=== PATIENT | male | born 1980 | race Caucasian/White ===

== ENCOUNTER 2021-10-11 12:05 | Inpatient (IN) | payer MEDICARE, MEDICAID ==
[~2021-10-11] VITALS: Ht 172.7 cm; Wt 105.7 kg
[2021-10-11] VITALS (19 sets, daily range): BP systolic 68–143; BP diastolic 28–100
[2021-10-11] MEDS ORDERED: prilosec (12:13)
[2021-10-11] MEDS ORDERED: lasix (12:13)
[2021-10-11] MEDS ORDERED: oxycodone (12:13)
[2021-10-11] MEDS ORDERED: nifedipine (12:13)
[2021-10-11] MEDS ORDERED: albuterol (12:13)
[2021-10-11] MEDS ORDERED: [UNRECOGNIZED DRUG - OTHER] (12:13)
[2021-10-11] MEDS ORDERED: lorazepam (12:13)
[2021-10-11] MEDS ORDERED: keflex (12:13)
[2021-10-11] MEDS ORDERED: NALOXONE HCL 1 MG/ML 2ML VIAL ONE ×3 (12:34→12:40)
[2021-10-11] MEDS ORDERED: ACETAMINOPHEN 325MG TABLET PO STA (12:39)
[2021-10-11] MEDS ORDERED: NALOXONE HCL 1 MG/ML 2ML VIAL IV STA (12:44)
[2021-10-11] MEDS ORDERED: CEFTRIAXONE 1 G PREMIX 50 ML IV ONE (12:45)
[2021-10-11] MEDS ORDERED: NALOXONE HCL 1 MG/ML 2ML VIAL IV ONE ×2 (12:45)
[2021-10-11] MEDS ORDERED: VECURONIUM BROMIDE 10 MG/VIAL IV ONE (12:45)
[2021-10-11] MEDS ORDERED: PROPOFOL 10MG/ML 100ML 100 ML IV ONE (12:45)
[2021-10-11 13:07] LABS: HEMOGLOBIN. 7.3 g/dL (14.0-18.0); MEAN CORPUSCULAR HEMOGLOBIN 35.7 pg (28.0-32.0); MEAN CORPUSCULAR VOLUME 103.2 fL (80.0-94.0); MEAN PLATELET VOLUME 9.4 fl (7.4-10.4); PLATELET 59 x1000/uL (130-400); RED BLOOD CELL COUNT 2.03 mill/uL (4.7-6.1)
[2021-10-11 13:15] LABS: CHLORIDE 101 mEq/L (98-107)
[2021-10-11 13:20] LABS: ETHANOL BLOOD < 10 mg/dL
[2021-10-11 14:14] LABS: PLATELET ESTIMATE DECREASED
[2021-10-11 14:33] LABS: BG BASE EXCESS -1.2 mmol/L (-2.0-2.0); BG CARBOXYHEMOGLOBIN 0.5 % (0.5-1.5); BG DEOXYHEMOGLOBIN 0.7 % (0.0-5.0); BG FRACTION INSPIRED OXYGEN 80; BG METHEMOGLOBIN 0.7 % (0.0-1.5); BG OXYGEN SATURATION 99.3 % (92.0-98.5); BG OXYHEMOGLOBIN 98.1 % (94.0-97.0); BG PCO2 35.5 mmHg (35.0-45.0); BG PH 7.429 (7.350-7.450); BG PO2 303.3 mmHg (75.0-100.0); BG SAMPLE SITE RIGHT RADIAL; BG TOTAL HEMOGLOBIN 6.1 g/dL (12.0-18.0); BG VENT MODE VENT - AC
[2021-10-11] MEDS ORDERED: PANTOPRAZOLE SODIUM 40 MG/VIAL IV NR (15:00)
[2021-10-11] MEDS ORDERED: OCTREOTIDE 1,000 MCG in SODIUM CHLORIDE 0.9% 98 ML IV NR ×4 (15:15)
[2021-10-11] MEDS ORDERED: IOHEXOL-350 100 ML BOTTLE ONE (15:20)
[2021-10-11 16:27] LABS: INR 2.8; PROTHROMBIN TIME 27.4 sec (9.6-11.0)
[2021-10-11] MEDS ORDERED: VANCOMYCIN 2,000 MG in DEXT 5% WATER 500 ML IV SCH (18:00)
[2021-10-11 21:06] LABS: TOTAL IRON BINDING CAPACITY 137 ug/dL (250-450)
[2021-10-11 21:55] LABS: VITAMIN B12 SERUM > 2000.0 pg/mL (211-911)
[2021-10-11 22:36] LABS: FERRITIN 280 ng/mL (22-322)
[2021-10-11] MEDS: CEFEPIME 1,000 MG in DEXTROSE 5% WATER 50 ML IV SCH (22:37)
[2021-10-11] MEDS: PANTOPRAZOLE SODIUM 40 MG/VIAL IV SCH (22:40)
[2021-10-11] MEDS: NOREPINEPHRINE 32 MG in DEXT 5% WATER 218 ML IV PRN (22:41)
[2021-10-11] MEDS: PROPOFOL 10MG/ML 100ML 100 ML IV PRN (22:43)
[2021-10-12] VITALS (113 sets, daily range): BP systolic 63–146; BP diastolic 22–111
[2021-10-12 02:15] LABS: HEMOGLOBIN 6.5 g/dL (14.0-18.0)
[2021-10-12 02:16] LABS: HEMATOCRIT 19.5 % (42.0-52.0)
[2021-10-12] MEDS: PROPOFOL 10MG/ML 100ML 100 ML IV PRN ×4 (04:17→15:48)
[2021-10-12 08:45] LABS: HEMATOCRIT. 24.5 % (42.0-52.0); MEAN CORPUSCULAR VOLUME 98.7 fL (80.0-94.0); MEAN PLATELET VOLUME 9.1 fl (7.4-10.4); PLATELET 129 x1000/uL (130-400); RED BLOOD CELL COUNT 2.48 mill/uL (4.7-6.1); RED CELL DISTRIBUTION WIDTH 23.6 % (11.6-14.6)
[2021-10-12 08:50] LABS: BG BASE EXCESS -6.7 mmol/L (-2.0-2.0); BG CARBOXYHEMOGLOBIN 0.5 % (0.5-1.5); BG DEOXYHEMOGLOBIN 3.6 % (0.0-5.0); BG FRACTION INSPIRED OXYGEN 40; BG METHEMOGLOBIN 0.5 % (0.0-1.5); BG OXYGEN SATURATION 96.4 % (92.0-98.5); BG OXYHEMOGLOBIN 95.4 % (94.0-97.0); BG PCO2 22.5 mmHg (35.0-45.0); BG PH 7.469 (7.350-7.450); BG PO2 84.8 mmHg (75.0-100.0); BG SAMPLE SITE LEFT BRACHIAL; BG TOTAL HEMOGLOBIN 7.7 g/dL (12.0-18.0); BG VENT MODE VENT - AC
[2021-10-12 09:07] LABS: INR 2.9; PROTHROMBIN TIME 28.9 sec (9.6-11.0)
[2021-10-12] MEDS: PANTOPRAZOLE SODIUM 40 MG/VIAL IV SCH ×2 (09:28→20:38)
[2021-10-12] MEDS: CEFEPIME 1,000 MG in DEXTROSE 5% WATER 50 ML IV SCH (09:28)
[2021-10-12 09:44] LABS: VITAMIN B12 SERUM > 2000.0 pg/mL (211-911)
[2021-10-12] MEDS ORDERED: LACTULOSE 20G/30ML UDC PO PRN (10:15)
[2021-10-12] MEDS: LACTULOSE 20G/30ML UDC PO SCH ×3 (10:47→17:19)
[2021-10-12] MEDS: OCTREOTIDE 1,000 MCG in SODIUM CHLORIDE 0.9% 98 ML IV SCH (10:47)
[2021-10-12] MEDS: PHENYLEPHRINE 50 MG in DEXT 5% WATER 245 ML IV PRN ×2 (12:19→20:14)
[2021-10-12] MEDS: NOREPINEPHRINE 32 MG in DEXT 5% WATER 218 ML IV PRN ×3 (12:20→22:53)
[2021-10-12] MEDS ORDERED: IPRATROPIUM/ALBUTEROL 0.5-3(2.5)MG/3ML NEB HHN PRN (13:15)
[2021-10-12] MEDS ORDERED: PROPOFOL 10MG/ML 100ML 100 ML IV PRN (13:15)
[2021-10-12 13:22] LABS: NUCLEATED RED BLOOD CELLS 1 /100 WBC
[2021-10-12 13:23] LABS: PLATELET ESTIMATE SLIGHTLY DECREASED
[2021-10-12 15:34] LABS: HEMATOCRIT 22.6 % (42.0-52.0)
[2021-10-12 20:05] LABS: HEMATOCRIT 23.5 % (42.0-52.0); HEMOGLOBIN 7.1 g/dL (14.0-18.0)
[2021-10-12] MEDS: IPRATROPIUM/ALBUTEROL 0.5-3(2.5)MG/3ML NEB HHN SCH (20:14)
[2021-10-12] MEDS: DOXYCYCLINE 100 MG in DEXT 5% WATER 100 ML IV SCH (20:37)
[2021-10-12 21:01] LABS: HEPATITIS B SURFACE ANTIGEN NEGATIVE
[2021-10-13] VITALS (59 sets, daily range): BP systolic 39–157; BP diastolic 0–73
[2021-10-13] MEDS: IPRATROPIUM/ALBUTEROL 0.5-3(2.5)MG/3ML NEB HHN SCH ×4 (00:01→14:30)
[2021-10-13] MEDS: PHENYLEPHRINE 50 MG in DEXT 5% WATER 245 ML IV PRN ×4 (03:06→16:26)
[2021-10-13] MEDS: PROPOFOL 10MG/ML 100ML 100 ML IV PRN (03:07)
[2021-10-13 03:17] LABS: HEMATOCRIT 25.3 % (42.0-52.0); HEMOGLOBIN 7.7 g/dL (14.0-18.0)
[2021-10-13] MEDS: NOREPINEPHRINE 32 MG in DEXT 5% WATER 218 ML IV PRN ×3 (06:04→14:06)
[2021-10-13 06:55] LABS: HEMATOCRIT. 24.1 % (42.0-52.0); HEMOGLOBIN. 7.2 g/dL (14.0-18.0); MEAN CORPUSCULAR HEMOGLOBIN 31.2 pg (28.0-32.0); MEAN CORPUSCULAR VOLUME 103.8 fL (80.0-94.0); MEAN PLATELET VOLUME 9.3 fl (7.4-10.4); PLATELET 94 x1000/uL (130-400); RED BLOOD CELL COUNT 2.32 mill/uL (4.7-6.1); RED CELL DISTRIBUTION WIDTH 24.3 % (11.6-14.6)
[2021-10-13] MEDS ORDERED: LIDOCAINE HCL 2% 5ML SYRINGE IV ONE (08:17)
[2021-10-13] MEDS ORDERED: SODIUM BICARBONATE 8.4% 1 MEQ/ML 50ML SYR IV ONE (08:17)
[2021-10-13] MEDS ORDERED: EPINEPHRINE 0.1MG/ML (1:10,000) 10ML SYR ONE (08:17)
[2021-10-13] MEDS ORDERED: DEXTROSE 50% WATER 50ML SYRINGE IV ONE (08:17)
[2021-10-13] MEDS ORDERED: CALCIUM CHLORIDE 1GM/10ML SYR IV ONE (08:17)
[2021-10-13] MEDS: OCTREOTIDE 1,000 MCG in SODIUM CHLORIDE 0.9% 98 ML IV SCH (08:30)
[2021-10-13] MEDS: LACTULOSE 20G/30ML UDC PO SCH ×2 (08:30→13:00)
[2021-10-13] MEDS: DOXYCYCLINE 100 MG in DEXT 5% WATER 100 ML IV SCH (08:30)
[2021-10-13] MEDS: PANTOPRAZOLE SODIUM 40 MG/VIAL IV SCH (08:31)
[2021-10-13 08:41] LABS: NUCLEATED RED BLOOD CELLS 4 /100 WBC
[2021-10-13 08:43] LABS: PLATELET ESTIMATE DECREASED
[2021-10-13] MEDS: CEFEPIME 1,000 MG in DEXTROSE 5% WATER 50 ML IV SCH (09:00)
[2021-10-13 09:41] LABS: CHLORIDE 101 mEq/L (98-107)
[2021-10-13 09:46] LABS: PHOSPHORUS 7.1 mg/dL (2.5-4.9)
[2021-10-13 10:09] LABS: BG BASE EXCESS -26.7 mmol/L (-2.0-2.0); BG CARBOXYHEMOGLOBIN 0.3 % (0.5-1.5); BG DEOXYHEMOGLOBIN 15.7 % (0.0-5.0); BG FRACTION INSPIRED OXYGEN 40; BG HCO3 ACT 5.5 mmol/L (22.0-26.0); BG METHEMOGLOBIN 0.8 % (0.0-1.5); BG OXYGEN SATURATION 84.1 % (92.0-98.5); BG OXYHEMOGLOBIN 83.2 % (94.0-97.0); BG PCO2 33.5 mmHg (35.0-45.0); BG PH 6.832 (7.350-7.450); BG PO2 76.3 mmHg (75.0-100.0); BG SAMPLE SITE LEFT BRACHIAL; BG TOTAL HEMOGLOBIN 7.7 g/dL (12.0-18.0); BG VENT MODE VENT - AC
[2021-10-13] MEDS ORDERED: ALBUMIN HUMAN 25GM/100ML (25%) IV SCH (10:15)
[2021-10-13] MEDS ORDERED: SODIUM BICARBONATE 8.4% 1 MEQ/ML 50ML SYR IV SCH (10:30)
[2021-10-13] MEDS: VASOPRESSIN 20 UNIT in SODIUM CHLORIDE 0.9% 99 ML IV PRN ×2 (10:57→16:25)
[2021-10-13] MEDS ORDERED: SODIUM BICARBONATE 150 MEQ in DEXTROSE 5% WATER 1,000 ML IV SCH (11:00)
[2021-10-13 11:04] LABS: PROTHROMBIN TIME 63.7 sec (9.6-11.0)
[2021-10-13 11:16] LABS: INR 5.9
[2021-10-13 16:31] LABS: HEMATOCRIT 21.2 % (42.0-52.0)
[2021-10-13 16:34] LABS: HEMOGLOBIN 5.6 g/dL (14.0-18.0)
[2021-10-14] MEDS ORDERED: VANCOMYCIN 1GM PMX (XELLIA) 200 ML IV NR (06:00)
[2021-10-14 09:07] LABS: FOLATE HEMATOCRIT 22.6 % (37.5-51.0)
[2021-10-14 13:11] LABS: FOLATE RBC 1327 ng/mL (>498)
== END 2021-10-13 21:40 | DRG 871 ==
LOC: ER 12:05 → CVICU 15:06 → EDBEDREQTM 15:09 → EDBEDREQSVC 15:09 → EDBEDREQ 15:09 → CVICU 18:15
PROVIDERS: ADMIT Internal Medicine; ATTEND Internal Medicine
PROC: 5A1945Z Respiratory Ventilation, 24-96 Consecutive Hours (ICD-10-PCS; principal; 2021-10-11)
PROC: 0BH17EZ Insertion of Endotracheal Airway into Trachea, Via Natural or Artificial Opening (ICD-10-PCS; 2021-10-11)
PROC: 02HV33Z Insertion of Infusion Device into Superior Vena Cava, Percutaneous Approach (ICD-10-PCS; 2021-10-11)
PROC: B548ZZA Ultrasonography of Superior Vena Cava, Guidance (ICD-10-PCS; 2021-10-11)
PROC: 30233N1 Transfusion of Nonautologous Red Blood Cells into Peripheral Vein, Percutaneous Approach (ICD-10-PCS; 2021-10-11)
PROC: 5A12012 Performance of Cardiac Output, Single, Manual (ICD-10-PCS; 2021-10-13)
PROC: 5A1D70Z Performance of Urinary Filtration, Intermittent, Less than 6 Hours Per Day (ICD-10-PCS; 2021-10-13)
DX: A41.89 Other specified sepsis (principal); E43 Unspecified severe protein-calorie malnutrition; G92.8 Other toxic encephalopathy; J18.9 Pneumonia, unspecified organism; J96.01 Acute respiratory failure with hypoxia; K72.00 Acute and subacute hepatic failure without coma; N18.6 End stage renal disease; R65.21 Severe sepsis with septic shock; D68.9 Coagulation defect, unspecified; K92.2 Gastrointestinal hemorrhage, unspecified; E87.6 Hypokalemia; D53.9 Nutritional anemia, unspecified; D69.6 Thrombocytopenia, unspecified; F10.20 Alcohol dependence, uncomplicated; E66.01 Morbid (severe) obesity due to excess calories; R16.1 Splenomegaly, not elsewhere classified; I46.9 Cardiac arrest, cause unspecified; Z20.822 Contact with and (suspected) exposure to COVID-19; I50.9 Heart failure, unspecified; J45.909 Unspecified asthma, uncomplicated; K70.30 Alcoholic cirrhosis of liver without ascites; Z78.1 Physical restraint status; Z82.49 Family history of ischemic heart disease and other diseases of the circulatory system; Z99.2 Dependence on renal dialysis; Z68.35 Body mass index [BMI] 35.0-35.9, adult
CPT/HCPCS: 36415; 36600; 70496; 70498; 71045; 76700; 80048; 80053; 80076; 80202; 80307; 80320; 80329; 82140; 82248; 82375; 82607; 82728; 82746; 82747; 82805; 82962; 83540; 83550; 83605; 83735; 83880; 84100; 84145; 84478; 84484; 85014; 85018; 85025; 85044; 86705; 86709; 86803; 86850; 86900; 86920; 87070; 87077; 87340; 87426; 93005; 93923; 93976; 94002; 94003; 94640; 99291; A6261; C9113; J0692; J0696; J2310; J2354; J2370; J2704; J3370; J3490; J7040; J7050; J7060; J7070; P9016; P9047; Q9967; A4315; G0480